=== PATIENT | female | born 1985 | race Two or more races ===

== ENCOUNTER 2016-08-20 16:37 | Emergency (ER) | payer SELFPAY ==
[~2016-08-20] VITALS: Ht 157.5 cm; Wt 99.8 kg
[~2016-08-20 16:37] MED LIST: PRENATAL PLUS I1 TAB PO
== END 2016-08-20 18:50 | disposition short-term general hospital (02) ==
LOC: ER 16:37 → LAB 17:41 → ER 17:41
DX: O99.89 Other specified diseases and conditions complicating pregnancy, childbirth and the puerperium (principal); R51 Headache; O21.2 Late vomiting of pregnancy; Z3A.28 28 weeks gestation of pregnancy; Z79.899 Other long term (current) drug therapy
CPT/HCPCS: J2765